=== PATIENT | female | born 1980 | race African-American/Black ===

== ENCOUNTER 2022-08-16 11:44 | Emergency (ER) | payer OTHER ==
[2022-08-16 13:01] LABS: Hemoglobin 14.4 g/dL (12.0-15.5); Mean Corpuscular HGB CONC 35.1 g/dL (32.0-36.0); Mean Corpuscular Hemoglobin 32.8 pg (27.0-33.0); Mean Corpuscular Volume 93.4 fl (81.6-98.3); Mean Platelet Volume 11.6 fl (7.4-10.4); Platelet Count 176 10x3/uL (150-450); RBC Distribution Width 12.1 % (11.5-14.5); Red Blood Cell (RBC) Count 4.39 10x6/uL (3.90-5.03); White Blood Cell (WBC) Count 5.7 10x3/uL (3.5-10.5)
[2022-08-16 13:02] LABS: MDiff Complete? YES
[2022-08-16 13:07] LABS: ALT (SGPT) 15 U/L (8-55); AST (SGOT) 22 U/L (5-34); Albumin 4.2 g/dL (3.5-5.0); Alkaline Phosphatase 38 U/L (40-110); Anion Gap 13 mmol/L (10-20); BUN (Urea Nitrogen) 6 mg/dL (7.0-18.7); Bilirubin, Total 0.8 mg/dL (0.2-1.2); CRP (Inflammatory) 0.53 mg/dL (= or < 0.5); Calc. Creatinine Clearance 0 mL/min (70-130); Calcium 9.3 mg/dL (7.8-10.44); Carbon Dioxide 23 mmol/L (22-29); Chloride 105 mmol/L (98-107); Estimated GFR 95; Globulin 3.3 g/dL (2.4-3.5); Glucose 85 mg/dL (70-105); Potassium 3.5 mmol/L (3.5-5.1); Protein, Total 7.5 g/dL (6.0-8.3); Sodium 137 mmol/L (136-145)
[2022-08-16] MEDS ORDERED: Dexamethasone 10 MG/ML VIAL ONE (13:25)
[2022-08-16] MEDS ORDERED: Ondansetron PF 4 MG/2 ML Vial ONE (13:25)
[2022-08-16] MEDS ORDERED: Ketorolac Tromethamine 30 MG/ML VIAL ONE (13:25)
[2022-08-16 13:37] LABS: Monocytes 12 % (0-10)
[2022-08-16 13:41] LABS: Eosinophils 3 % (0-10); Lymphocytes 54 % (21-51); Neutrophil 30 % (42-75); Reactive Lymphocytes 1 % (0-10)
[2022-08-16 13:42] LABS: Platelet Morphology Comment Appears Adequate
[2022-08-16 14:03] LABS: SARS-CoV-2 NAA Rapid Test Not Detected (NotDetected)
[2022-08-16 14:44] LABS: Bilirubin Neg (Negative); Blood, Urine 10 (Negative); Clarity Slightly Cloudy (Clear); Glucose, Urine (Dipstick) Normal (Negative); Ketone, Urine Negative (Negative); Leukocyte 500 (Negative); Nitrite Negative (Negative); Protein, Urine (Dipstick) 30 mg/dl (Neg-Trace); Specific Gravity, Urine 1.015 (1.005-1.030)
[2022-08-16 15:00] LABS: Bacteria/HPF 2+ HPF (None Seen); Mucous/LPF 3+ LPF (<2+); RBC/HPF 0-3 HPF (0-3)
== END 2022-08-16 14:57 | disposition home or self-care (01) ==
LOC: CSHERS 11:44
DX: M32.9 Systemic lupus erythematosus, unspecified (principal); I10 Essential (primary) hypertension; F17.210 Nicotine dependence, cigarettes, uncomplicated; Z79.899 Other long term (current) drug therapy; Z20.822 Contact with and (suspected) exposure to COVID-19
CPT/HCPCS: 80053; 81003; 81015; 83605; 85025; 86140; 96374; 96375; J1100; J1885; J2405

== ENCOUNTER 2022-09-08 07:11 | Emergency (ER) | payer OTHER ==
[2022-09-08] MEDS ORDERED: Ketorolac Tromethamine 30 MG/ML VIAL ONE (07:38)
[2022-09-08] MEDS ORDERED: predniSONE 20 MG TAB ONE (07:38)
[2022-09-08 07:57] LABS: Hemoglobin 13.9 g/dL (12.0-15.5); Mean Corpuscular Hemoglobin 32.9 pg (27.0-33.0); Mean Corpuscular Volume 94.1 fl (81.6-98.3); Mean Platelet Volume 11.2 fl (7.4-10.4); Platelet Count 202 10x3/uL (150-450); RBC Distribution Width 12.4 % (11.5-14.5); Red Blood Cell (RBC) Count 4.22 10x6/uL (3.90-5.03)
[2022-09-08 08:01] LABS: ALT (SGPT) 18 U/L (8-55); AST (SGOT) 23 U/L (5-34); Albumin 4.2 g/dL (3.5-5.0); Alkaline Phosphatase 45 U/L (40-110); Anion Gap 12 mmol/L (10-20); BUN (Urea Nitrogen) 5 mg/dL (7.0-18.7); Bilirubin, Total 0.6 mg/dL (0.2-1.2); Calc. Creatinine Clearance 0 mL/min (70-130); Calcium 9.2 mg/dL (7.8-10.44); Carbon Dioxide 24 mmol/L (22-29); Chloride 105 mmol/L (98-107); Estimated GFR 99; Globulin 3.2 g/dL (2.4-3.5); Glucose 99 mg/dL (70-105); Lipase 11 U/L (8-78); Potassium 3.2 mmol/L (3.5-5.1); Protein, Total 7.4 g/dL (6.0-8.3); Sodium 138 mmol/L (136-145)
[2022-09-08 08:13] LABS: Actual Bicarbonate (HCO3v) 24 mEq/L (22-28); Calcium, Ionized (venous) 1.07 mmol/L (1.16-1.32); Chloride (VBG) 103 mmol/L (98-106); Potassium (VBG) 3.21 mmol/L (3.70-5.30); Puncture Site Other Site; RapidComm Collect By CBN; Sodium 137.2 mmol/L (133-146); pH (venous) 7.35 (7.32-7.43)
[2022-09-08 08:24] LABS: MDiff Complete? YES
[2022-09-08 08:31] LABS: Lymphocytes 36 % (21-51); Monocytes 8 % (0-10); Neutrophil 56 % (42-75)
[2022-09-08 08:32] LABS: Platelet Morphology Comment Appears Adequate
[2022-09-08 08:33] LABS: RBC Morphology Normal; White Blood Cell (WBC) Count 5.7 10x3/uL (3.5-10.5)
[2022-09-08 08:41] LABS: Bilirubin Neg (Negative); Blood, Urine Negative (Negative); Glucose, Urine (Dipstick) Normal (Negative); Ketone, Urine Negative (Negative); Leukocyte 500 (Negative); Nitrite Negative (Negative); Protein, Urine (Dipstick) Negative (Neg-Trace); Urobilinogen Normal mg/dL (Less than 2)
[2022-09-08 08:41] LABS: SARS-CoV-2 NAA Rapid Test Not Detected (NotDetected)
[2022-09-08 08:47] LABS: Clarity Hazy (Clear)
[2022-09-08 08:54] LABS: RBC/HPF 0-3 HPF (0-3); WBC/HPF 21-50 HPF (0-3)
[2022-09-08 08:56] LABS: Bacteria/HPF 1+ HPF (None Seen); Transitional Epithelial 0-3 HPF (None Seen)
[2022-09-08] MEDS ORDERED: Morphine 4 MG/ML VIAL ONE (09:35)
== END 2022-09-08 10:05 | disposition home or self-care (01) ==
LOC: CSHERS 07:11
DX: M32.10 Systemic lupus erythematosus, organ or system involvement unspecified (principal); N39.0 Urinary tract infection, site not specified; I10 Essential (primary) hypertension; F17.210 Nicotine dependence, cigarettes, uncomplicated; Z20.822 Contact with and (suspected) exposure to COVID-19
CPT/HCPCS: 36415; 71045; 80053; 81003; 81015; 82805; 83605; 83690; 84484; 85025; 93005; 96374; 96375; J1885; J2270; J7512

== ENCOUNTER 2022-10-19 23:38 | Emergency (ER) | payer OTHER ==
[2022-10-20] MEDS ORDERED: Lidocaine Viscous Sol 2% 15 ml UD Cup ONE
[2022-10-20 00:33] LABS: Hemoglobin 13.1 g/dL (12.0-15.5); MDiff Complete? YES; Mean Corpuscular Volume 93.9 fl (81.6-98.3); Platelet Count 219 10x3/uL (150-450); RBC Distribution Width 12.8 % (11.5-14.5); White Blood Cell (WBC) Count 6.8 10x3/uL (3.5-10.5)
[2022-10-20 00:35] LABS: ALT (SGPT) 14 U/L (8-55); AST (SGOT) 20 U/L (5-34); Albumin 4.2 g/dL (3.5-5.0); Alkaline Phosphatase 47 U/L (40-110); Anion Gap 16 mmol/L (10-20); BUN (Urea Nitrogen) 11 mg/dL (7.0-18.7); Bilirubin, Total 0.5 mg/dL (0.2-1.2); Calc. Creatinine Clearance 0 mL/min (70-130); Calcium 9.3 mg/dL (7.8-10.44); Carbon Dioxide 20 mmol/L (22-29); Chloride 108 mmol/L (98-107); Estimated GFR 87; Globulin 3.4 g/dL (2.4-3.5); Glucose 91 mg/dL (70-105); Lipase 4 U/L (8-78); Potassium 3.5 mmol/L (3.5-5.1); Protein, Total 7.6 g/dL (6.0-8.3); Sodium 140 mmol/L (136-145)
[2022-10-20 01:09] LABS: Eosinophils 3 % (0-10); Lymphocytes 25 % (21-51); Monocytes 12 % (0-10); Neutrophil 60 % (42-75); Platelet Morphology Comment Appears Adequate
== END 2022-10-20 01:08 | disposition home or self-care (01) ==
LOC: CSHERS 23:38
DX: K12.1 Other forms of stomatitis (principal); M32.9 Systemic lupus erythematosus, unspecified; I10 Essential (primary) hypertension; F17.210 Nicotine dependence, cigarettes, uncomplicated; Z79.899 Other long term (current) drug therapy
CPT/HCPCS: 80053; 83690; 85025; 99283